=== PATIENT | male | born 1975 | race American Indian/Alaskan Native ===

== ENCOUNTER 2019-08-10 22:40 | Emergency (ER) | payer SELFPAY ==
[2019-08-10 22:45] VITALS: BP 139/85
--- NOTE | 2019-08-11 00:32 | Emergency Department Report ---
ED ENT HPI - General Chief complaint: Sore Throat Stated complaint: TOOTHACHE, THROAT PAIN Time Seen by Provider: 08/11/19 00:03 Source: patient Mode of arrival: Ambulatory Limitations: No Limitations - History of Present Illness Initial comments: pt is a 43 y/o aam with hx of dental caries who presents for dental pain 5/10 x 1 week this episode , but chronic for last year intermittently. pt denies fever or chills no throat or ear pain, pt is tolerating po intake without symptoms. MD complaint: tooth pain Onset/Timin -: week(s) Location: tooth # (29) Severity: moderate Severity scale (0 -10): 5 Quality: aching Consistency: intermittent Improves with: none Worsens with: eating, other (hot and cold stimuli ) Context- Dental: history of dental caries, poor dental care Associated Symptoms: toothache. denies: fever, gum swelling, sore throat, tinnitus - Related Data Previous Rx's Medication Instructions Recorded Last Taken Type Amoxicillin [Trimox CAP] 500 mg PO Q8H 10 Days #30 capsule 08/11/19 Unknown Rx Ibuprofen [Motrin 800 MG tab] 800 mg PO Q8HR PRN #30 tablet 08/11/19 Unknown Rx ED Dental HPI - General Chief complaint: Sore Throat Stated complaint: TOOTHACHE, THROAT PAIN Time Seen by Provider: 08/11/19 00:03 Source: patient Mode of arrival: Ambulatory Limitations: No Limitations - Related Data Previous Rx's Medication Instructions Recorded Last Taken Type Amoxicillin [Trimox CAP] 500 mg PO Q8H 10 Days #30 capsule 08/11/19 Unknown Rx Ibuprofen [Motrin 800 MG tab] 800 mg PO Q8HR PRN #30 tablet 08/11/19 Unknown Rx ED Review of Systems ROS: Stated complaint: TOOTHACHE, THROAT PAIN Other details as noted in HPI Constitutional: denies: chills, fever Eyes: denies: eye pain, eye discharge, vision change ENT: dental pain. denies: ear pain, throat pain Respiratory: denies: cough, shortness of breath, wheezing Cardiovascular: denies: chest pain, palpitations Endocrine: no symptoms reported Gastrointestinal: denies: abdominal pain, nausea, diarrhea Genitourinary: denies: urgency, dysuria Musculoskeletal: denies: back pain, joint swelling, arthralgia Skin: denies: rash, lesions Neurological: denies: headache, weakness, paresthesias Psychiatric: denies: anxiety, depression Hematological/Lymphatic: denies: easy bleeding, easy bruising ED Past Medical Hx - Past Medical History Previous Medical History?: No - Surgical History Past Surgical History?: No - Social History Smoking Status: Current Every Day Smoker - Medications Home Medications: Home Medications Medication Instructions Recorded Confirmed Last Taken Type Amoxicillin [Trimox CAP] 500 mg PO Q8H 10 Days #30 capsule 08/11/19 Unknown Rx Ibuprofen [Motrin 800 MG tab] 800 mg PO Q8HR PRN #30 tablet 08/11/19 Unknown Rx ED Physical Exam - General Limitations: No Limitations General appearance: alert, in no apparent distress - Head Head exam: Present: atraumatic, normocephalic - Eye Eye exam: Present: normal appearance, PERRL, EOMI Pupils: Present: normal accommodation - ENT ENT exam: Present: mucous membranes moist, TM's normal bilaterally, normal external ear exam - Expanded ENT Exam Expanded Mouth exam: Absent: trismus Teeth exam: Present: dental caries, dental tenderness # (29 mild erythema no focal abscess ). Absent: gingival enlargement - Neck Neck exam: Present: normal inspection - Respiratory Respiratory exam: Present: normal lung sounds bilaterally. Absent: respiratory distress, wheezes, stridor, chest wall tenderness - Cardiovascular Cardiovascular Exam: Present: regular rate, normal rhythm, normal heart sounds. Absent: systolic murmur, diastolic murmur, rubs, gallop - GI/Abdominal GI/Abdominal exam: Present: soft, normal bowel sounds - Rectal Rectal exam: Present: deferred - Extremities Exam Extremities exam: Present: normal inspection - Back Exam Back exam: Present: normal inspection, full ROM. Absent: tenderness - Neurological Exam Neurological exam: Present: alert, oriented X3 - Psychiatric Psychiatric exam: Present: normal affect, normal mood - Skin Skin exam: Present: warm, dry, intact, normal color. Absent: rash ED Course Vital Signs 08/10/19 22:43 Temperature 98.6 F Pulse Rate 86 Respiratory 18 Rate Blood Pressure 139/85 O2 Sat by Pulse 97 Oximetry ED Medical Decision Making - Medical Decision Making infected dental carries. plan: amoxicillin ibuprofen follow up with dentist, pt given referral to same , dc'd to home in stable condition at this time. Critical care attestation.: If time is entered above; I have spent that time in minutes in the direct care of this critically ill patient, excluding procedure time. ED Disposition Clinical Impression: Dental caries Disposition: DC-01 TO HOME OR SELFCARE Is pt being admited?: No Does the pt Need Aspirin: No Condition: Stable Instructions: Dental Caries (ED) Prescriptions: Ibuprofen [Motrin 800 MG tab] 800 mg PO Q8HR PRN #30 tablet PRN Reason: pain Amoxicillin [Trimox CAP] 500 mg PO Q8H 10 Days #30 capsule Referrals: PRIMARY CARE, [Primary Care Provider] - 3-5 Days [facility] [Outside] - 3-5 Days Forms: Work/School Release Form(ED) Time of Disposition: 00:36
== END 2019-08-11 01:04 | disposition home or self-care (01) ==
LOC: ED 22:40
DX: K02.9 Dental caries, unspecified (principal); F17.200 Nicotine dependence, unspecified, uncomplicated